=== PATIENT | male | born 1990 ===

== ENCOUNTER 2017-09-28 06:15 | Emergency (ER) | payer SELFPAY ==
[2017-09-28 06:39] VITALS: BP 137/82; PULSE 65; RESP 16; TEMP 97.9; O2SAT 98
--- NOTE | 2017-09-28 07:42 | ED PDOC ---
HPI: Dental Pain/Injury Time Seen by Provider: 09/28/17 07:22 Chief Complaint (Nursing): Dental Pain Chief Complaint (Provider): Dental Pain History Per: Patient History/Exam Limitations: no limitations Onset/Duration Of Symptoms: Days Current Symptoms Are (Timing): Intermittent Episodes Quality: "Pain" Additional Complaint(s): 27 year old male with a history of anxiety presents to the ED complaining of left-sided upper and lower jaw pain. Patient states he has wisdom tooth pain whenever he bites. Pain started one year ago but came last week. Also states he has difficulty breathing and feels uncomfortable.He made an appointment with the dentist but he could not wait so he came to the ED. Denies taking any medication for pain and denies any other complaints in the ED. PMD: No Family Provider Past Medical History Reviewed: Historical Data, Nursing Documentation, Vital Signs Vital Signs: Last Vital Signs Temp 97.9 F 09/28/17 06:36 Pulse 65 09/28/17 06:36 Resp 16 09/28/17 06:36 BP 137/82 09/28/17 06:36 Pulse Ox 98 09/28/17 06:36 - Medical History PMH: Anxiety - Surgical History Surgical History: No Surg Hx - Family History Family History: States: Unknown Family Hx - Allergies Allergies/Adverse Reactions: Allergies Allergy/AdvReac Type Severity Reaction Status Date / Time No Known Allergies Allergy Verified 09/28/17 06:39 Review of Systems ROS Statement: Except As Marked, All Systems Reviewed And Found Negative ENT: Positive for: Mouth Pain (wisdom tooth pain) Respiratory: Positive for: Other (difficulty breathing ) Physical Exam - Reviewed Nursing Documentation Reviewed: Yes Vital Signs Reviewed: Yes - Physical Exam Appears: Positive for: Well, Non-toxic, No Acute Distress Head Exam: Positive for: ATRAUMATIC, NORMAL INSPECTION, NORMOCEPHALIC Skin: Positive for: Normal Color, Warm, Dry ENT: Positive for: Normal ENT Inspection, Pharynx Is (normal). Negative for: Sinus Pain/Drainage, Pharyngeal Erythema Neurologic/Psych: Positive for: Alert, Oriented (x3). Negative for: Motor/ Sensory Deficits - ECG O2 Sat by Pulse Oximetry: 98 (RA) Pulse Ox Interpretation: Normal Medical Decision Making Medical Decision Making: Time: 0700 Initial Impression: tooth ache Initial Plan: --Reevaluation Patient referred to dentist and advised to take ibuprofen. He is ready to be discharged. Scribe Attestation: Documented by Davi De La Garza, acting as a scribe for Kike Pradhan MD Provider Scribe Attestation: All medical record entries made by the Scribe were at my direction and personally dictated by me. I have reviewed the chart and agree that the record accurately reflects my personal performance of the history, physical exam, medical decision making, and the department course for this patient. I have also personally directed, reviewed, and agree with the discharge instructions and disposition. Disposition - Clinical Impression Clinical Impression: Toothache - Patient ED Disposition Is Patient to be Admitted: No Doctor Will See Patient In The: Office Counseled Patient/Family Regarding: Studies Performed, Diagnosis, Need For Followup - Disposition [facility] Disposition: Routine/Home Disposition Time: 08:15 Condition: GOOD Additional Instructions: Take your motrin for pain. Follow up with your dentist within 1 week. Instructions: Dental Pain
== END 2017-09-28 08:22 | disposition home or self-care (01) ==
LOC: H.ER 06:15
DX: K08.89 Other specified disorders of teeth and supporting structures (principal); F41.9 Anxiety disorder, unspecified